=== PATIENT | female | born 1960 | race Caucasian/White ===

== ENCOUNTER → 2017-03-04 | Outpatient (CLI) | payer BC ==
[~2017-03-04] MED LIST: ASPIR 8181 MG PO; CHLORTHALIDONE25 MG PO; Cogentin PO; GEODON40 MG PO; HYDROCODONE BIT1 T11 PO; OMEPRAZOLE D/R20 MG PO; PERCOCET 325 MG1 TA5 PO; TENORMIN50 MG PO; VITAMIN D-32000 UNI1 PO
--- NOTE | ~2017-03-04 | ST ---
[place], [place] EXERCISE STRESS TEST REPORT NAME: RITA DILL UNIT #: [id number] ROOM: DOCTOR: ZAIN MONACO [facility]YOHAN BIRTHDATE: [birth year] DOS: 03/04/2017 LEXISCAN WITH CARDIOLITE The patient received Lexiscan 0.4 mg over 10 seconds. Heart rate was 75. Isotope was injected. Ischemic changes in the inferior and lateral leads. Myocardial perfusion scan to follow. No complications noted. YOHAN PITTMAN MD CM:STRESS:EXERCISE STRESS TEST REPORT [id number] YOHAN PITTMAN MD [facility]
== END ==
LOC: CARD 01:10
DX: I34.0 Nonrheumatic mitral (valve) insufficiency (principal); I10 Essential (primary) hypertension; R94.31 Abnormal electrocardiogram [ECG] [EKG]; R53.81 Other malaise